=== PATIENT | female | born 1990 | race African-American/Black ===

== ENCOUNTER 2019-03-27 12:47 | Emergency (ER) | payer OTHER ==
[~2019-03-27] VITALS: Ht 152.4 cm; Wt 58.1 kg
[2019-03-27 12:59] VITALS: BP 110/68; Ht 152.4 cm; Wt 58.1 kg
== END 2019-03-27 14:11 | disposition left against medical advice (07) ==
LOC: ED 12:47
DX: Z53.21 Procedure and treatment not carried out due to patient leaving prior to being seen by health care provider (principal)